=== PATIENT | female | born 1980 | race Caucasian/White ===

== ENCOUNTER 2016-06-28 10:50 | Emergency (ER) | payer MEDICAID, OTHER ==
[2016-06-28 11:15] VITALS: BP 127/69
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
--- OUTSIDE RECORDS SUMMARY | 2016-06-28 11:35 | XMS REPORT | Continuity of Care Document ---
:1980 Author Organization [facility] ([facility]) Address [address] [place] [address] Phone [phone] Care Team Providers Name Role Phone Justin Quiñones Primary Care Provider [phone] Source Comments This disclosure is being made pursuant to the Care Everywhere program, applicable federal and state laws, and may not contain all informaitonavailable regarding this patient.[facility] ([facility]) Active Allergies and Adverse Reactions Not on File Current Medications Not on file Active Problems Not on file Social History Tobacco Use Types Packs/Day Years Used Date Never Assessed Plan of Care Health Maintenance Due Date Last Done Comments Hepatitis B Vaccine (1 of 3 - Primary Series) 1980 Tdap Vaccine 1989 Lipid Disorder Screening 1996 MMR Vaccine 1996 Td Vaccine 1996 Cervical Cancer Screening 2008 Influenza Vaccine: Seasonal (#1) 10/20/2015 Results from Last 3 Months Not on file
== END 2016-06-28 11:41 | disposition home or self-care (01) ==
LOC: ER 10:50
DX: M62.838 Other muscle spasm (principal); S16.1XXA Strain of muscle, fascia and tendon at neck level, initial encounter; F17.210 Nicotine dependence, cigarettes, uncomplicated; Z87.440 Personal history of urinary (tract) infections

== ENCOUNTER 2016-07-14 17:42 | Emergency (ER) | payer OTHER ==
[2016-07-14 18:01] VITALS: BP 149/87
[2016-07-14] MEDS ORDERED: NORMAL SALINE 1,000 ML IV ONE (18:14)
[2016-07-14] MEDS ORDERED: KETOROLAC TROMETHAMINE 30 MG/ML VIAL IV ONE (18:14)
[2016-07-14] MEDS ORDERED: METOCLOPRAMIDE HCL 5 MG/ML VIAL IV ONE (18:14)
[2016-07-14] MEDS ORDERED: diphenhydrAMINE HCL 50 MG/ML VIAL IV ONE (18:14)
[2016-07-14] MEDS ORDERED: KETOROLAC TROMETHAMINE 30 MG/ML VIAL ONE (18:15)
[2016-07-14] MEDS ORDERED: METOCLOPRAMIDE HCL 5 MG/ML VIAL ONE (18:15)
[2016-07-14] MEDS ORDERED: diphenhydrAMINE HCL 50 MG/ML VIAL ONE (18:15)
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
--- OUTSIDE RECORDS SUMMARY | 2016-07-14 18:28 | XMS REPORT | Continuity of Care Document ---
:1980 Author Organization [facility] ([facility]) Address [address] [place] [address] Phone [phone] Care Team Providers Name Role Phone Justin Quiñones Primary Care Provider [phone] Source Comments This disclosure is being made pursuant to the Care Everywhere program, applicable federal and state laws, and may not contain all informaitonavailable regarding this patient.[facility] ([facility]) Active Allergies and Adverse Reactions Not on [...]
== END 2016-07-14 19:38 | disposition home or self-care (01) ==
LOC: ER 17:42
DX: R51 Headache (principal); Z87.440 Personal history of urinary (tract) infections